=== PATIENT | female | born 1995 | race Caucasian/White ===

== ENCOUNTER 2021-09-01 19:38 | Emergency (ER) | payer OTHER, SELFPAY ==
--- OUTSIDE RECORDS SUMMARY | 2021-09-01 19:41 | XMS REPORT | Continuity of Care Document ---
:1995 Author Organization [facility] t Address [address] [place] [address] Care Team Providers Name Role Phone PCP, DOES NOT HAVE A Primary Care Physician Unavailable Cipriano CONTRERAS Attending Clinician Unavailable Problems This patient has no known problems. Allergies, Adverse Reactions, Alerts Allergy Allergy Status Severity Reaction(s) Onset Inactive Treating Comm ents Source Name Type Date Date Clinician NO KNOWN Drug Active [facility] Medications This patient has no known medications. Procedures This patient has no known procedures. Encounters Start End Encounter Admission Attending Care Care Encounter Source Date/Time Date/Time Type Type Clinicians Facility Department ID 2021-09-03 2021-09-03 Outpatient R [facility] [id number] [facility] 08:30:00 08:30:00 [place] [id number] [facility] Results This patient has no known results.
[2021-09-01] MEDS ORDERED: NA CHLORIDE 0.9% 1,000 ML ONE (20:41)
[2021-09-01 20:48] LABS: Urine Blood Negative (Negative); Urine Glucose Negative (Negative); Urine Protein Negative (Negative)
[2021-09-01 20:58] LABS: Absolute Lymphocytes (CBC) 1.7 K/uL (0.7-4.9); Hematocrit 38.5 % (36.0-45.0); Lymphocytes % 27.3 % (15.3-44.8); MPV 7.6 fL (7.6-11.3); RBC Red Blood Cell Count 4.39 M/uL (3.86-4.86)
[2021-09-01 21:07] LABS: BUN Blood Urea Nitrogen 11 mg/dL (7-18); Bicarbonate 25 mmol/L (21-32); Glucose Level 107 mg/dL (74-106); Potassium 3.7 mmol/L (3.5-5.1); Sodium Level 138 mmol/L (136-145)
[2021-09-01 21:25] LABS: HCG, Quantitative 4 mIU/mL (1-3)
--- NOTE | 2021-09-01 21:55 | ER ---
Nurse's Notes [facility] Name: Tomas Lee Age: 26 yrs Sex: Female : 1995 Arrival Date: 09/01/2021 Time: 19:41 Bed 27 Private MD: Diagnosis: Threatened Presentation: 09/01 19:51 Chief complaint: Patient states: "I am five weeks and I started bleeding today tw5 so I just wanted to make sure everything is okay." She states she is cramping 3/10. " It isn't as bad as when I have my period but it comes and goes" She also states " The bleeding started off as a little bit of blood when I wiped, but I recently saw a couple of blood clots. Coronavirus screen: Vaccine status: Patient reports being unvaccinated. Ebola Screen: Patient negative for fever greater than or equal to 101.5 degrees Fahrenheit, and additional compatible Ebola Virus Disease symptoms Patient denies exposure to infectious person. Patient denies travel to an Ebola-affected area in the 21 days before illness onset. Initial Sepsis Screen: Does the patient meet any 2 criteria? No. Patient's initial sepsis screen is negative. Does the patient have a suspected source of infection? No. Patient's initial sepsis screen is negative. Risk Assessment: Do you want to hurt yourself or someone else? Patient reports no desire to harm self or others. Onset of symptoms was September 01, 2021. 19:51 Method Of Arrival: Ambulatory tw5 19:51 Acuity: YORDY 3 tw5 Triage Assessment: 19:56 General: Appears in no apparent distress. Behavior is calm, cooperative, appropriate tw5 for age. Pain: Pain currently is 3 out of 10 on a pain scale. Quality of pain is described as crampy. : Reports vaginal bleeding that is with clots, spotty. 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 - Social history:: Smoking status: Reported history of juuling and/or vaping. - Family history:: not pertinent. Screenin:57 Abuse screen: Denies threats or abuse. Denies injuries from another. Nutritional tw5 screening: No deficits noted. Tuberculosis screening: No symptoms or risk factors identified. Fall Risk None identified. Assessment: 21:34 General: Appears in no apparent distress. comfortable, Behavior is calm, cooperative, ab2 appropriate for age. Pain: Denies pain. Neuro: Level of Consciousness is awake, alert, obeys commands, Oriented to person, place, time, situation, Appropriate for age Cms Expert are equal bilaterally Moves all extremities. Gait is steady, Speech is normal, Facial symmetry appears normal. Cardiovascular: No deficits noted. Denies chest pain, shortness of breath, Heart tones S1 S2 present Patient's skin is warm and dry. Chest pain is denied. Respiratory: No deficits noted. Airway is patent Breath sounds are clear bilaterally. Denies shortness of breath. GI: No deficits noted. No signs and/or symptoms were reported involving the gastrointestinal system. Abdomen is round non-distended, Bowel sounds present X 4 quads. : louis blood, Reports vaginal bleeding that is. EENT: No deficits noted. No signs and/or symptoms were reported regarding the EENT system. Derm: No deficits noted. No signs and/or symptoms reported regarding the dermatologic system. Musculoskeletal: No deficits noted. No signs and/or symptoms reported regarding the musculoskeletal system. Vital Signs: 19:51 BP 113 / 77; Pulse 80; Resp 14; Temp 98.3(O); Pulse Ox 100% on R/A; Weight 58.97 kg; tw5 Height 5 ft. 2 in. (157.48 cm); Pain 3/10; 21:38 BP 122 / 73; Pulse 79; Resp 16; Pulse Ox 98% on R/A; ab2 19:51 Body Mass Index 23.78 (58.97 kg, 157.48 cm) tw5 ED Course: 19:41 Patient arrived in ED. kc5 19:54 Triage completed. tw5 19:56 Arm band placed on left wrist. tw5 20:15 Nitish Alvarado MD is Attending Physician. [facility] 20:39 Roger Gallo is Primary Nurse. ab2 20:39 Abo/rh Typing Sent. ab2 20:39 Basic Metabolic Panel Sent. ab2 20:39 CBC with Diff Sent. ab2 20:39 Quantitative Hcg Sent. ab2 20:39 Inserted saline lock: 20 gauge in right antecubital area, using aseptic technique. ab2 21:36 Bed in low position. Call light in reach. Side rails up X2. Adult w/ patient. ab2 21:36 No provider procedures requiring assistance completed. ab2 21:55 Emiliano Butler MD is Referral Physician. pricilla 22:03 IV discontinued, intact, bleeding controlled, No redness/swelling at site. Pressure tk1 dressing applied. Administered Medications: 20:44 Drug: NS 0.9% 1000 ml Route: IV; Rate: 1 bolus; Site: right antecubital; ab2 21:38 Follow up: Response: No adverse reaction; IV Status: Completed infusion ab2 Outcome: 21:55 Discharge ordered by . pricilla 22:03 Discharged to home ambulatory, with family. tk1 22:03 Condition: good 22:03 Discharge instructions given to patient, family, Instructed on discharge instructions, follow up and referral plans. Demonstrated understanding of instructions, follow-up care. 22:03 Patient left the ED. tk1 Signatures: Nitish Alvarado MD MD cha Wood, Tiffany tw5 Meena Gomez kc5 Renata Hartman tk1 Roger Gallo ab2
--- NOTE | 2021-09-01 21:56 | EDPHYS ---
Physician Documentation [facility] Name: Tomas Lee Age: 26 yrs Sex: Female : 1995 Arrival Date: 09/01/2021 Time: 19:41 Bed 27 Private MD: ED Physician Nitish Alvarado HPI: 09/01 20:58 This 26 yrs old Female presents to ER via Ambulatory with complaints of priiclla Vaginal Bleeding. 20:58 The patient presents with vaginal bleeding that is light. Onset: The symptoms/episode pricilla began/occurred 1 day(s) ago. Modifying factors: The symptoms are alleviated by nothing, the symptoms are aggravated by nothing. Associated signs and symptoms: The patient has no apparent associated signs or symptoms. Severity of symptoms: At their worst the symptoms were mild, in the emergency department the symptoms are actually worse, mildly. The patient is sexually active, reportedly has a single partner. 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 - Social history:: Smoking status: Reported history of juuling and/or vaping. - Family history:: not pertinent. ROS: 20:58 Constitutional: Negative for fever, chills, and weight loss, Eyes: Negative for injury, pricilla pain, redness, and discharge, ENT: Negative for injury, pain, and discharge, Neck: Negative for injury, pain, and swelling, Cardiovascular: Negative for chest pain, palpitations, and edema, Respiratory: Negative for shortness of breath, cough, wheezing, and pleuritic chest pain, Abdomen/GI: Negative for abdominal pain, nausea, vomiting, diarrhea, and constipation, Back: Negative for injury and pain, MS/Extremity: Negative for injury and deformity, Skin: Negative for injury, rash, and discoloration, Neuro: Negative for headache, weakness, numbness, tingling, and seizure, Psych: Negative for depression, anxiety, suicide ideation, homicidal ideation, and hallucinations, Allergy/Immunology: Negative for hives, rash, and allergies, Endocrine: Negative for neck swelling, polydipsia, polyuria, polyphagia, and marked weight changes, Hematologic/Lymphatic: Negative for swollen nodes, abnormal bleeding, and unusual bruising. 20:58 : Positive for pelvic pain. Exam: 20:58 Constitutional: This is a well developed, well nourished patient who is awake, alert, pricilla and in no acute distress. Head/Face: Normocephalic, atraumatic. Eyes: Pupils equal round and reactive to light, extra-ocular motions intact. Lids and lashes normal. Conjunctiva and sclera are non-icteric and not injected. Cornea within normal limits. Periorbital areas with no swelling, redness, or edema. ENT: Nares patent. No nasal discharge, no septal abnormalities noted. Tympanic membranes are normal and external auditory canals are clear. Oropharynx with no redness, swelling, or masses, exudates, or evidence of obstruction, uvula midline. Mucous membranes moist. Neck: Trachea midline, no thyromegaly or masses palpated, and no cervical lymphadenopathy. Supple, full range of motion without nuchal rigidity, or vertebral point tenderness. No Meningismus. Chest/axilla: Normal chest wall appearance and motion. Nontender with no deformity. No lesions are appreciated. Cardiovascular: Regular rate and rhythm with a normal S1 and S2. No gallops, murmurs, or rubs. Normal PMI, no JVD. No pulse deficits. Respiratory: Lungs have equal breath sounds bilaterally, clear to auscultation and percussion. No rales, rhonchi or wheezes noted. No increased work of breathing, no retractions or nasal flaring. Abdomen/GI: Soft, non-tender, with normal bowel sounds. No distension or tympany. No guarding or rebound. No evidence of tenderness throughout. Back: No spinal tenderness. No costovertebral tenderness. Full range of motion. Female : Normal external genitalia. Skin: Warm, dry with normal turgor. Normal color with no rashes, no lesions, and no evidence of cellulitis. MS/ Extremity: Pulses equal, no cyanosis. Neurovascular intact. Full, normal range of motion. Neuro: Awake and alert, GCS 15, oriented to person, place, time, and situation. Cranial nerves II-XII grossly intact. Motor strength 5/5 in all extremities. Sensory grossly intact. Cerebellar exam normal. Normal gait. Psych: Awake, alert, with orientation to person, place and time. Behavior, mood, and affect are within normal limits. Vital Signs: 19:51 BP 113 / 77; Pulse 80; Resp 14; Temp 98.3(O); Pulse Ox 100% on R/A; Weight 58.97 kg; tw5 Height 5 ft. 2 in. (157.48 cm); Pain 3/10; 21:38 BP 122 / 73; Pulse 79; Resp 16; Pulse Ox 98% on R/A; ab2 19:51 Body Mass Index 23.78 (58.97 kg, 157.48 cm) tw5 MDM: 20:15 Patient medically screened. pricilla 21:00 Differential diagnosis: postcoital bleeding, ruptured ectopic , urinary tract pricilla infection. Data reviewed: vital signs, nurses notes, lab test result(s). Data interpreted: supervisor of instruction: rate is 80 beats/min, rhythm is regular, Pulse oximetry: on room air is 100 %. Test interpretation: by ED physician or midlevel provider: ECG, plain radiologic studies. Counseling: I had a detailed discussion with the patient and/or guardian regarding: the historical points, exam findings, and any diagnostic results supporting the discharge/admit diagnosis, lab results, radiology results, the need for outpatient follow up, for definitive care, an OB/Gyne specialist. 09/01 20:21 Order name: Abo/rh Typing; Complete Time: 21:23 [facility] 09/01 20:21 Order name: Basic Metabolic Panel; Complete Time: 21:54 [facility] 09/01 20:21 Order name: CBC with Diff; Complete Time: 21:23 [facility] 09/01 20:21 Order name: Quantitative Hcg; Complete Time: 21:55 [facility] 09/01 20:47 Order name: Urine Dipstick-Ancillary; Complete Time: 20:57 [facility] 09/01 20:48 Order name: Urine --Ancillary (enter results); Complete Time: 20:57 09/01 20:02 Order name: Urine Test (obtain specimen); Complete Time: 20:50 [facility] 09/01 20:02 Order name: Urine Dipstick-Ancillary (obtain specimen); Complete Time: 20:50 [facility] 09/01 20:21 Order name: IV Saline Lock; Complete Time: 20:39 [facility] 09/01 20:21 Order name: Labs collected and sent; Complete Time: 20:39 [facility] 09/01 20:21 Order name: NPO; Complete Time: 20:50 [facility] 09/01 20:21 Order name: Urine Dipstick-Ancillary (obtain specimen); Complete Time: 20:47 [facility] 09/01 20:21 Order name: Urine Test (obtain specimen); Complete Time: 20:47 [facility] Administered Medications: 20:44 Drug: NS 0.9% 1000 ml Route: IV; Rate: 1 bolus; Site: right antecubital; ab2 21:38 Follow up: Response: No adverse reaction; IV Status: Completed infusion ab2 Disposition Summary: 09/01/21 21:55 Discharge Ordered Location: Home [facility] Problem: new pricilla Symptoms: have improved pricilla Condition: Stable pricilla Diagnosis - Threatened pricilla Followup: pricilla - With: Private Physician - When: 2 - 3 days - Reason: Recheck today's complaints, Continuance of care, Re-evaluation by your physician Followup: pricilla - With: - When: 2 - 3 days - Reason: Recheck today's complaints, Continuance of care, Re-evaluation by your physician Discharge Instructions: - Discharge Summary Sheet pricilla - Threatened Miscarriage pricilla - Vaginal Bleeding During , First Trimester pricilla - Threatened Miscarriage, [id number] pricilla - Vaginal Bleeding During , First Trimester, [id number] pricilla Forms: - Medication Reconciliation Form pricilla - Thank You Letter pricilla - Antibiotic Education pricilla - Prescription Opioid Use [facility] Signatures: Dispatcher [employer] Nitish Deleon MD MD cha Wood, Tiffany tw5 Roger Gallo ab2 Corrections: (The following items were deleted from the chart) 21:03 20:22 Transvaginal Ob+US.RAD.BRZ ordered. ED EDMS
[2021-09-02 03:11] VITALS: TEMP 98.3
[2021-09-02 03:13] VITALS: BP 122/73; O2SAT 98
== END 2021-09-01 22:03 | disposition home or self-care (01) ==
LOC: ER 19:38
DX: O20.0 Threatened abortion (principal); Z3A.01 Less than 8 weeks gestation of pregnancy
CPT/HCPCS: 36415; 80048; 81003; 81025; 84702; 85025; 86900; 86901; 96360; 99283; J7030